=== PATIENT | male | born 1985 | race Caucasian/White ===

== ENCOUNTER 2023-01-23 15:25 | Emergency (ER) | payer BC, SELFPAY ==
--- NOTE | ~2023-01-23 | XR_ITS ---
XR lumbar spine 2-3V 01/23/2023 16:13 Indication: Low back pain Procedure: 3 views lumbar spine Comparison: No prior studies for comparison. Findings: There is significant disc height loss at L4-5 and L5-S1 with endplate degenerative change. There is facet hypertrophy at L5-S1. No acute fracture or traumatic malalignment. No spondylolisthesi s. Normal lumbar lordosis. Pedicles intact. Sacral foramen are symmetric. Impression: 1: Moderate lower lumbar spondylosis. Reviewed, dictated and finalized at location B. Impression: 1: Moderate lower lumbar spondylosis.
[2023-01-23 15:40] VITALS: BP 164/100; PULSE 86; RESP 16; TEMP 37.8; O2SAT 99
--- NOTE | 2023-01-23 16:04 | ED.BACK ---
HPI - Back Pain/Injury General Chief Complaint: Back Pain/Injury Stated Complaint: Lower Back/Right Leg Pain Time Seen by Provider: 01/23/23 15:55 Source: patient, RN notes reviewed and old records reviewed Mode of arrival: ambulatory Limitations: no limitations History of Present Illness HPI Narrative: 37-year-old male presents to [facility] with complaints of right-sided back pain which radiates to his buttocks and times down his right leg for the past 2 days. Patient states initial injury about 4 years ago when he slid down some steep wooden steps on his back when he lived in [place]. Patient reports that he has had increased pain to his back since yesterday. 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 Patient has appointment with new PCP on 02/04/2023. MD elicited complaint: back pain Pertinent past history: prior back pain Onset (ago): day(s) (day 2 of symptoms) Pain scale (0-10): 5 Quality: aching and spasming Exacerbating factors: movement and other (when first arising in the morning) Related Data Allergies Allergy/AdvReac Type Severity Reaction Status Date / Time No Known Allergies Allergy Mild Verified 01/23/23 15:36 Review of Systems Review of Systems: CONSTITUTIONAL: Denies fever, chills, or sweats. EYES: Denies visual changes, redness, or discharge. ENT: Denies rhinorrhea, congestion, sore throat, or otalgia. CARDIOVASCULAR: Denies chest pain, palpitations, or edema. RESPIRATORY: Denies cough or dyspnea. GASTROINTESTINAL: Denies abdominal pain, nausea, vomiting, or diarrhea. GENITOURINARY: Denies dysuria or hematuria. SKIN: Denies rash or itching. MUSCULOSKELETAL: Reports right sided back pain, joint pain, or myalgia. NEUROLOGIC: Denies headache, numbness, or weakness. PSYCHIATRIC: Denies anxiety or depression. All systems reviewed & are unremarkable except as noted in HPI and below PMFSH Past Medical History Medical History (Updated 01/25/23 @ 09:34 by Lise Cortes NP) Back injury Back pain Surgical History Surgical History (Updated 01/25/23 @ 09:34 by Lise Cortes NP) History of elbow surgery left with hardware which was then removed Social History Social History (Updated 01/25/23 @ 09:35 by Lise Cortes NP) Smoking status: Current every day smoker Tobacco type: e-cigarettes/vaping Alcohol intake: current Alcohol use details: social Gender identity (if verbalized by the patient): Male Comments At time of signature, agree with nursing past medical, surgical, social and family history. There is no relevant family history pertinent to the presenting complaint Exam Narrative: GENERAL: Well-appearing, well-nourished, and in no acute distress. HEAD: Normocephalic, atraumatic. EYES: PERRLA and EOMI. ENT: Nares clear, no rhinorrhea or epistaxis. Mucous membranes moist.TM's normal, throat pink with no swelling or pain. NECK: Supple.no lymphadenopathy CHEST: Clear to auscultation. No respiratory distress.SAO2 99% on room air HEART: Regular rate and rhythm. No murmur heard. Normal peripheral pulses. ABDOMEN: Soft, nontender, nondistended, normal active bowel sounds. EXTREMITIES: Normal range of motion. No edema. Lumbar back pain right side with radiation to right buttock and some radiation down right leg posteriorly at times, pedal pulses present, increased pain with changes of position. SKIN: Warm, dry, no rash. NEURO: No focal deficits. Alert and oriented x3. Course Course Emergency Course: Patient is aware of diagnosis, understands and agrees to treatment plan.? Anticipatory guidance given.? Patient agrees to follow-up as directed and is aware of reasons to seek care at the emergency department. Portions of this record may have been created with voice recognition software Level of Care: Express Care Visit Vital Signs Vital signs: Vital Signs Temperature 37.8 C H 01/23/23
== END 2023-01-23 16:56 | disposition home or self-care (01) ==
PROVIDERS: Emergency Provider Registered Nurse; PCP Family Medicine
DX: M54.41 Lumbago with sciatica, right side (principal); F17.290 Nicotine dependence, other tobacco product, uncomplicated
CPT/HCPCS: 72100; 99213; G0463